=== PATIENT | male | born 1940 | race Caucasian/White ===

== ENCOUNTER 2019-10-13 09:00 | Observation (INO) | payer OTHER ==
[~2019-10-13] VITALS: Ht 162.6 cm; Wt 49.0 kg
[~2019-10-13 09:00] MED LIST: ATENOLOL25 MG PO; SIMVASTATIN40 M1 PO
[2019-10-13 09:01] VITALS: Ht 162.6 cm; Wt 49.0 kg
[2019-10-13 09:48] LABS: BASOPHIL % 0.5 % (0-2); PLATELET COUNT 212 x10^3mcL (130-400)
[2019-10-13 09:49] LABS: RED CELL DISTRIBUTION WIDTH 16.2 % (11.5-14.5)
[2019-10-13 09:57] LABS: CALCIUM 8.8 mg/dL (8.5-10.1); CHLORIDE SERUM 101 mmol/L (98-107); GLUCOSE SERUM 131 mg/dL (74-106); POTASSIUM SERUM 4.3 mmol/L (3.5-5.1); SODIUM SERUM 136 mmol/L (136-145)
[2019-10-13 10:02] LABS: ALBUMIN 3.9 g/dL (3.4-5.0); ALKALINE PHOSPHATASE 88 U/L (46-116); ALT/SGPT 18 U/L (16-63); AST/SGOT 12 U/L (15-37); BILIRUBIN TOTAL 0.8 mg/dL (0.20-1.00); TOTAL PROTEIN, SERUM 8.1 g/dL (6.4-8.2)
[2019-10-13] MEDS ORDERED: FENOFIBRATE43 M1 PO (10:14)
[2019-10-13] MEDS ORDERED: LIPITOR40 MG PO (10:15)
[2019-10-13] MEDS ORDERED: TAMSULOSIN HCL0.4 MG PO (10:15)
[2019-10-13] MEDS ORDERED: [UNRECOGNIZED DRUG - REMARK] (10:16)
[2019-10-13 11:59] VITALS: BP 134/69
[2019-10-13 14:14] VITALS: BP 134/69
[2019-10-13] MEDS ORDERED: LEVAQUIN750 MG PO (16:26)
[2019-10-13 17:45] VITALS: BP 103/49
[2019-10-13 20:36] VITALS: BP 109/56
[2019-10-14 05:29] VITALS: BP 117/57
[2019-10-14 08:43] VITALS: BP 112/50
[2019-10-14 11:12] VITALS: BP 112/50
== END 2019-10-14 11:30 | disposition home or self-care (01) ==
LOC: ED 09:00 → DU 11:07
PROVIDERS: Emergency Medicine; ADMIT Hospitalist
DX: R07.2 Precordial pain (principal); I25.10 Atherosclerotic heart disease of native coronary artery without angina pectoris; I10 Essential (primary) hypertension; D72.829 Elevated white blood cell count, unspecified; K44.9 Diaphragmatic hernia without obstruction or gangrene; Z87.891 Personal history of nicotine dependence
CPT/HCPCS: 83880; 99406; G0378; J1644; J1956; J2270; J2405; J7030